=== PATIENT | male | born 1930 | race Caucasian/White ===

== ENCOUNTER 2016-12-06 15:21 | Emergency (ER) | payer MEDICARE ==
[2016-12-06] MEDS ORDERED: ZESTRIL/PRINIV2.5 MG PO (16:56)
[2016-12-06] MEDS ORDERED: ASPIRIN 81 LOW81 MG (16:57)
[2016-12-06] MEDS ORDERED: METFORMIN1000 MG PO (16:57)
[2016-12-06] MEDS ORDERED: VITAMIN C1000 MG PO (16:58)
[2016-12-06] MEDS ORDERED: NARDIL15 M1 PO (16:58)
[2016-12-06] MEDS ORDERED: DIASTAT PEDIAT2.5 MG (17:03)
[2016-12-06 17:04] LABS: HEMATOCRIT 34.9 % (39.0-50.0); HEMOGLOBIN 11.6 g/dl (14.0-18.0); IMMATURE GRANULOCYTES 0.5 % (0.0-1.0); MEAN CELL VOLUME 87.3 fL CALC (80.0-100.0); MEAN CORPUSCULAR HGB CONC 33.2 g/L CALC (32.0-36.0); NEUT# 12.06 thou/uL (1.82-7.42); RED CELL DISTRI WIDTH 13.7 % (11.5-15.5)
[2016-12-06 17:17] LABS: ALBUMIN 4.3 g/dL (3.2-5.0); ALKALINE PHOSPHATASE 55 u/l (38-126); ANION GAP 16 (6-22 (CALC)); BILIRUBIN, TOTAL 1.1 mg/dL (0.0-1.4); BUN 18 mg/dL (8-23); BUN/CREATININE RATIO 18 (12-20 (CALC)); CALCIUM 9.2 mg/dL (8.4-10.2); CARBON DIOXIDE 27 mmol/l (22-30); CHLORIDE 98 mmol/l (95-108); GFR > 60 ML/MIN (>=60 (CALC)); GFR FOR AFR.AMER. > 60 ML/MIN (>=60 (CALC)); GLUCOSE 166 mg/dL (82-115); POTASSIUM 4.1 mmol/l (3.5-5.1); SGOT/AST 45 u/l (19-48); SGPT/ALT 42 u/l (11-66); SODIUM 136 mmol/l (137-146); TOTAL PROTEIN 7.2 g/dL (6.3-8.2)
[2016-12-06 17:18] LABS: PROTHROMBIN TIME 11.2 SECONDS (9.0-12.5)
[2016-12-06 17:34] LABS: MYOGLOBIN 675 ng/mL (0 - 121)
[2016-12-06 18:03] VITALS: BP 170/74
== END 2016-12-06 18:04 | disposition short-term general hospital (02) ==
LOC: ED 15:30
PROVIDERS: Emergency Medicine
DX: I61.9 Nontraumatic intracerebral hemorrhage, unspecified (principal); I10 Essential (primary) hypertension; R41.82 Altered mental status, unspecified; S00.03XA Contusion of scalp, initial encounter; Z86.73 Personal history of transient ischemic attack (TIA), and cerebral infarction without residual deficits; E11.9 Type 2 diabetes mellitus without complications; Z95.0 Presence of cardiac pacemaker